=== PATIENT | male | born 1960 | race Caucasian/White ===

== ENCOUNTER → 2025-03-17 13:01 | Outpatient (BNVA) | payer MEDICARE, SELFPAY | PROVIDERS: PCP Physician Assistant; Visit Provider Anesthesiology Pain Medicine | DX: M54.9 Dorsalgia, unspecified (principal); M51.16 Intervertebral disc disorders with radiculopathy, lumbar region | CPT/HCPCS: 99204 ==

== ENCOUNTER → 2025-04-21 13:25 | Outpatient (BNVA) | payer MEDICARE, SELFPAY | PROVIDERS: PCP Physician Assistant; Visit Provider Anesthesiology Pain Medicine | DX: M54.9 Dorsalgia, unspecified (principal); M51.16 Intervertebral disc disorders with radiculopathy, lumbar region | CPT/HCPCS: 99214 ==

== ENCOUNTER 2025-05-30 09:14 | Outpatient (CLI) | payer MEDICARE, SELFPAY ==
--- NOTE | 2025-05-30 09:30 | MR_ITS ---
WS: [id number] MRI LUMBAR SPINE NONCONTRAST HISTORY: M51.16 - Intervertebral disc disorders with radiculopathy... COMPARISON: Radiograph 02/14/2025 TECHNIQUE: Sagittal and axial multisequence imaging is submitted. T7-8 central small disc protrusion contacts the thoracic cord. Reversal of the normal lumbar lordosis centered at L1-2. Disc spaces are narrowed. Chronic endplate changes at L3-4. Marrow edema along the superior endplate of S1. Retrolisthesis of L1 and L3 by 3 mm. Degenerative disc disease throughout the lumbar spine but most significant at L1-2 and L3-4. Conus terminates normally at L1-2 disc level. L1-L2: Large central disc protrusion deforming the thecal sac and contacting and displacing the nerve roots. Mild contact on the traversing nerve roots, LEFT greater than RIGHT. Mild bilateral foraminal stenosis. L2-L3: Diffuse annular disc bulging with osteophytic ridging and facet arthritis. LEFT foraminal disc protrusion. Mild bilateral foraminal stenosis. L3-L4: Diffuse annular disc bulging, osteophytic ridging and facet arthritis. Moderate size central disc osteophyte extending into the subarticular recesses. There is mild disc contact on the traversing L4 nerve roots. Mild central, subarticular recess and foraminal stenosis. Disc osteophyte complexes contribute to RIGHT foraminal stenosis. Small amount of fluid in the facet joints. L4-L5: Diffuse annular disc bulging, osteophytic ridging and moderate facet arthritis. Central disc protrusion with annular fissure. Mild disc contacts the traversing L5 nerve roots in the subarticular recesses. RIGHT foraminal disc protrusion. Moderate bilateral foraminal stenosis. Mild central and subarticular recess stenosis. L5-S1: Diffuse annular disc bulge with a central disc protrusion. Moderate bilateral facet joint arthritis and ligamentum flavum hypertrophy. LEFT foraminal disc completely effaces fat and contacts the LEFT exiting L5 nerve root. Severe LEFT and moderate RIGHT foraminal stenosis. Paravertebral soft tissues are negative. MR/MR lumbar spine wo con* [id number] IMPRESSION: 1. Advanced degenerative facet disease and disc disease throughout the lumbar spine. 2. L5-S1: Severe LEFT foraminal stenosis with disc protrusion contacting the L EFT exiting L5 nerve root. Moderate RIGHT foraminal stenosis. 3. L5-S1: Central disc protrusion and mild subarticular recess stenosis. Moder ate facet joint arthritis. 4. L4-5: Central disc protrusion with disc bulging. Disc contacts the traversi ng L5 nerve roots. Additional RIGHT foraminal disc protrusion. Moderate bilater al foraminal stenosis, mild central and subarticular recess stenosis. 5. L3-4: Moderate size central disc osteophyte extending into the subarticular recesses. Disc contacts the traversing L4 nerve roots. Mild central, subarticu lar recess and foraminal stenosis. Disc osteophyte in the RIGHT foramen. 6. Mild bilateral foraminal stenosis at L1-2 and L2-3. 7. L1-2: Large central disc protrusion contacting the traversing nerve roots.
== END 2025-05-30 09:15 | disposition home or self-care (01) ==
PROVIDERS: PCP Physician Assistant; Visit Provider Anesthesiology Pain Medicine
DX: M48.061 Spinal stenosis, lumbar region without neurogenic claudication (principal); M54.16 Radiculopathy, lumbar region; M48.07 Spinal stenosis, lumbosacral region; M54.17 Radiculopathy, lumbosacral region
CPT/HCPCS: 72148

== ENCOUNTER → 2025-06-09 12:07 | Outpatient (BNVA) | payer MEDICARE, SELFPAY | PROVIDERS: PCP Physician Assistant; Visit Provider Anesthesiology Pain Medicine | DX: Z51.81 Encounter for therapeutic drug level monitoring (principal); Z79.1 Long term (current) use of non-steroidal anti-inflammatories (NSAID) | CPT/HCPCS: 36415; 80048; 99214 ==

== ENCOUNTER → 2025-06-24 13:46 | Outpatient (BNVA) | payer MEDICARE, SELFPAY | PROVIDERS: PCP Physician Assistant; Visit Provider Anesthesiology Pain Medicine | DX: M54.16 Radiculopathy, lumbar region (principal); E11.9 Type 2 diabetes mellitus without complications; Z01.818 Encounter for other preprocedural examination | CPT/HCPCS: 36416; 62323; J1010; J9999 ==

== ENCOUNTER → 2025-07-08 08:27 | Outpatient (BNVA) | payer MEDICARE, SELFPAY | PROVIDERS: PCP Physician Assistant; Visit Provider Anesthesiology Pain Medicine | DX: M54.9 Dorsalgia, unspecified (principal); M51.16 Intervertebral disc disorders with radiculopathy, lumbar region | CPT/HCPCS: 99214 ==

== ENCOUNTER → 2025-10-06 09:47 | Outpatient (BNVA) | payer MEDICARE, SELFPAY | PROVIDERS: PCP Physician Assistant; Visit Provider Anesthesiology Pain Medicine | DX: M51.16 Intervertebral disc disorders with radiculopathy, lumbar region (principal) | CPT/HCPCS: 99214 ==

== ENCOUNTER → 2025-10-14 14:26 | Outpatient (BNVA) | payer MEDICARE, SELFPAY | PROVIDERS: PCP Physician Assistant; Visit Provider Orthopaedic Surgery | DX: M51.16 Intervertebral disc disorders with radiculopathy, lumbar region (principal); M48.061 Spinal stenosis, lumbar region without neurogenic claudication | CPT/HCPCS: 72110; 99204 ==